=== PATIENT | male | born 1995 | race Caucasian/White ===

== ENCOUNTER 2018-12-06 19:43 | Emergency (ER) | payer OTHER | END 2018-12-06 22:45 | disposition home or self-care (01) | LOC: FTE 19:43 | DX: L60.0 Ingrowing nail (principal) | CPT/HCPCS: 99283; Z7502 ==

== ENCOUNTER 2018-12-11 14:02 | Emergency (ER) | payer OTHER ==
[2018-12-11] MEDS: HYDROCODONE/APAP (5/325) TAB PO (15:45)
== END 2018-12-11 17:46 | disposition home or self-care (01) ==
LOC: FTE 14:02
DX: S99.912A Unspecified injury of left ankle, initial encounter (principal); X50.1XXA Overexertion from prolonged static or awkward postures, initial encounter; Y92.9 Unspecified place or not applicable; Z87.891 Personal history of nicotine dependence
CPT/HCPCS: 73610; 99283-25